=== PATIENT | female | born 1975 | race Hispanic/Latino ===

== ENCOUNTER 2019-11-30 16:03 | Emergency (ER) | payer SELFPAY ==
[2019-11-30] MEDS ORDERED: DIPHENOXYLATE/ATROPINE TAB PO ONE (21:24)
[2019-11-30] MEDS ORDERED: ONDANSETRON 4 MG ODT TAB PO ONE (21:24)
[2019-11-30] MEDS ORDERED: FAMOTIDINE 20 MG TAB PO ONE (21:24)
[2019-11-30 22:23] VITALS: BP 135/84
--- NOTE | 2019-11-30 22:23 | Emergency Department Report ---
ED N/V/D HPI - General Chief complaint: Nausea/Vomiting/Diarrhea Stated complaint: VOMITING/DIARRHEA Source: patient Mode of arrival: Ambulatory Limitations: No Limitations - History of Present Illness Initial comments: Patient is a 44 yo White female with no past medical history who presents to the ED with c/o acute onset persistent intermittent nausea, vomiting and diarrhea w ith lack of appetite for the last 12 hours. Patient states that she has not been able to keep anything down including food and water. She denies abdominal pain, dizziness, chest pain, shortness of breath, lightheadedness, dysuria, urinary frequency and urgency or chest pain and shortness of breath. Patient states that the symptoms began after she ate fast food over 12 hours ago. MD complaint: nausea, vomiting, diarrhea -: Sudden, hour(s) (12) Description of Vomiting: food contents, watery Description of Diarrhea: water Associated Abdominal Pain: No Location: diffuse Radiation: none Severity: moderate Pain Scale: 0 Quality: dull Consistency: intermittent Improves with: none Worsens with: eating, vomiting Context: possible food poisoning Associated Symptoms: denies other symptoms, loss of appetite, malaise, nausea /vomiting. denies: myalgias, chest pain, cough, diaphoresis, fever/chills, headaches, rash, dysuria, shortness of breath, syncope, weakness - Related Data Previous Rx's Medication Instructions Recorded Last Taken Type Butalb/Acetamin/Caff 50-325-40 1 tab PO Q8H #20 tablet 10/22/18 Unknown Rx [Fioricet 50-325-40] Ondansetron [Zofran ODT TAB] 4 mg PO TID #40 tab.rapdis 10/22/18 Unknown Rx Diphenoxylate/Atropine [Lomotil] 1 - 2 tab PO Q4H PRN #21 tablet 11/30/19 Unknown Rx Famotidine [Pepcid] 20 mg PO Q12H #30 tablet 11/30/19 Unknown Rx Ondansetron [Zofran Odt] 4 mg PO Q6HR PRN #20 tab.rapdis 11/30/19 Unknown Rx Allergies Allergy/AdvReac Type Severity Reaction Status Date / Time No Known Allergies Allergy Unverified 10/22/18 08:13 ED Review of Systems ROS: Stated complaint: VOMITING/DIARRHEA Other details as noted in HPI Constitutional: denies: chills, fever Eyes: denies: eye pain, eye discharge, vision change ENT: denies: ear pain, throat pain Respiratory: denies: cough, shortness of breath, wheezing Cardiovascular: denies: chest pain, palpitations Endocrine: no symptoms reported Gastrointestinal: nausea, vomiting, diarrhea. denies: abdominal pain Genitourinary: denies: urgency, dysuria, discharge Musculoskeletal: denies: back pain, joint swelling, arthralgia Skin: denies: rash, lesions Neurological: denies: headache, weakness, paresthesias Psychiatric: denies: anxiety, depression Hematological/Lymphatic: denies: easy bleeding, easy bruising ED Past Medical Hx - Past Medical History Previous Medical History?: Yes - Surgical History Additional Surgical History: c section x2, hysterectomy - Social History Smoking Status: Current Every Day Smoker Substance Use Type: None - Medications Home Medications: Home Medications Medication Instructions Recorded Confirmed Last Taken Type Butalb/Acetamin/Caff 50-325-40 1 tab PO Q8H #20 tablet 10/22/18 Unknown Rx [Fioricet 50-325-40] Ondansetron [Zofran ODT TAB] 4 mg PO TID #40 tab.rapdis 10/22/18 Unknown Rx Diphenoxylate/Atropine [Lomotil] 1 - 2 tab PO Q4H PRN #21 tablet 11/30/19 Unknown Rx Famotidine [Pepcid] 20 mg PO Q12H #30 tablet 11/30/19 Unknown Rx Ondansetron [Zofran Odt] 4 mg PO Q6HR PRN #20 tab.rapdis 11/30/19 Unknown Rx ED Physical Exam - General Limitations: No Limitations General appearance: alert, in no apparent distress - Head Head exam: Present: atraumatic, normocephalic, normal inspection - Eye Eye exam: Present: normal appearance, PERRL, EOMI Pupils: Present: normal accommodation - ENT ENT exam: Present: normal exam, normal orophraynx, mucous membranes moist, TM's normal bilaterally, normal external ear exam - Neck Neck exam: Present: normal inspection, full ROM - Respiratory Respiratory exam: Present: normal lung sounds bilaterally. Absent: respiratory distress, wheezes, rales, rhonchi, chest wall tenderness, accessory muscle use, decreased breath sounds - Cardiovascular Cardiovascular Exam: Present: regular rate, normal rhythm, normal heart sounds. Absent: systolic murmur, diastolic murmur, rubs, gallop - GI/Abdominal GI/Abdominal exam: Present: soft, normal bowel sounds. Absent: tenderness, guarding, rebound, hyperactive bowel sounds, hypoactive bowel sounds - Extremities Exam Extremities exam: Present: normal inspection, full ROM, normal capillary refill - Back Exam Back exam: Present: normal inspection, full ROM. Absent: tenderness, CVA tenderness (R), CVA tenderness (L), muscle spasm, paraspinal tenderness, vertebral tenderness - Neurological Exam Neurological exam: Present: alert, oriented X3, CN II-XII intact, normal gait, reflexes normal - Psychiatric Psychiatric exam: Present: normal affect, normal mood - Skin Skin exam: Present: warm, dry, intact, normal color. Absent: rash ED Course Vital Signs 11/30/19 11/30/19 16:10 22:25 Temperature 98.4 F Pulse Rate 95 H 92 H Respiratory 20 17 Rate Blood Pressure 135/84 O2 Sat by Pulse 98 99 Oximetry ED Medical Decision Making - Medical Decision Making This is a 44-year-old female who presented to the ED with nausea, vomiting, diarrhea and lack of appetite. In the ED, patient is alert and oriented 3 and is not in distress and is hemodynamically stable. Patient was treated in the ED for nausea and vomiting and diarrhea and also given antacids. On reevaluation, patient presents challenge in the ED and was discharged home on antiemetics, antiacid and onto diarrhea. Patient was advised to maintain a clear liquid diet for 12-24 hours, and follow-up with her primary care physician in 5-7 days for reevaluation. Patient's advised to return to the ED immediately if symptoms get worse. - Differential Diagnosis Gastroenteritis; Dehydration; GERD; Critical care attestation.: If time is entered above; I have spent that time in minutes in the direct care of this critically ill patient, excluding procedure time. ED Disposition Clinical Impression: Nausea, vomiting and diarrhea, Viral gastroenteritis Disposition: TO HOME OR SELFCARE Is pt being admited?: No Does the pt Need Aspirin: No Condition: Stable Instructions: Gastroenteritis (ED), Acute Nausea and Vomiting (ED) Additional Instructions: Maintain a clear liquid that for 12-24 hours, drink plenty of fluids and follow- up. Memory deficits and has 7-10 days for reevaluation. Return to the ED immediately if symptoms get worse. Prescriptions: Diphenoxylate/Atropine [Lomotil] 1 - 2 tab PO Q4H PRN #21 tablet PRN Reason: Diarrhea Famotidine [Pepcid] 20 mg PO Q12H #30 tablet Ondansetron [Zofran Odt] 4 mg PO Q6HR PRN #20 tab.rapdis PRN Reason: Nausea Referrals: [facility] [Outside] - 3-5 Days Forms: Work/School Release Form(ED) Time of Disposition: 22:16 Print Language: [id number]
== END 2019-11-30 22:25 | disposition home or self-care (01) ==
LOC: ED 16:03
DX: A08.4 Viral intestinal infection, unspecified (principal); F17.200 Nicotine dependence, unspecified, uncomplicated; Z90.710 Acquired absence of both cervix and uterus; Z79.899 Other long term (current) drug therapy
CPT/HCPCS: Q0162